=== PATIENT | female | born 2000 | race African-American/Black ===

== ENCOUNTER 2020-07-12 02:23 | Day surgery (SDC) | payer OTHER ==
[2020-07-12 02:40] VITALS: BMI 27.4
[2020-07-12] MEDS ORDERED: hydrALAZINE 20 MG/ML VIAL SLOW IVP PRN (02:56)
[2020-07-12] MEDS ORDERED: Ondansetron ODT 4 MG TAB SL SCH (03:30)
[2020-07-12 04:23] LABS: Bilirubin Neg (Negative); Blood, Urine Negative (Negative); Clarity Cloudy (Clear); Glucose, Urine (Dipstick) Normal (Negative); Ketone, Urine Negative (Negative); Leukocyte 500 (Negative); Nitrite Negative (Negative); Protein, Urine (Dipstick) Negative (Neg-Trace); Urobilinogen Normal mg/dL (Less than 2); pH, Urine 6.5 (5.0-9.0)
[2020-07-12 04:31] LABS: RBC/HPF 0-3 HPF (0-3)
[2020-07-12 04:32] LABS: Bacteria/HPF 1+ HPF (None Seen)
[2020-07-14 21:55] LABS: Chlamydia by PCR Not Detected (NotDetected); GC by PCR Not Detected (NotDetected)
== END 2020-07-12 06:10 | disposition home or self-care (01) ==
LOC: CSHLD/OP 02:23
PROVIDERS: ATTEND Family Medicine
DX: O99.283 Endocrine, nutritional and metabolic diseases complicating pregnancy, third trimester (principal); E86.0 Dehydration; O99.891 Other specified diseases and conditions complicating pregnancy; R10.9 Unspecified abdominal pain; R39.11 Hesitancy of micturition; O98.812 Other maternal infectious and parasitic diseases complicating pregnancy, second trimester; A74.9 Chlamydial infection, unspecified; Z3A.20 20 weeks gestation of pregnancy
CPT/HCPCS: 81001; 87086; 87491; 87591; 99282; Q0162

== ENCOUNTER 2020-07-20 00:47 | Day surgery (SDC) | payer OTHER ==
[2020-07-20 01:30] VITALS: BMI 25.7
[2020-07-20] MEDS ORDERED: hydrALAZINE 20 MG/ML VIAL SLOW IVP PRN (02:14)
[2020-07-20 03:07] LABS: #Eosinphils 0.2 10x3/uL (0.0-0.5); #Monocytes 0.8 10x3/uL (0.0-1.1); #Neutrophils 5.7 10x3/uL (1.5-8.4); %Basophils 0.1 % (0.0-2.0); %Lymphocytes 28.7 % (18.0-47.0); %Monocytes 8.4 % (0.0-10.0); %Neutrophils 60.5 % (40.0-75.0); Hemoglobin 9.7 g/dL (12.0-15.5); Mean Corpuscular HGB CONC 30.6 g/dL (32.0-36.0); Mean Corpuscular Hemoglobin 27.2 pg (27.0-33.0); Mean Platelet Volume 10.1 fl (7.4-10.4); Platelet Count 255 10x3/uL (150-450); RBC Distribution Width 14.1 % (11.5-14.5); Red Blood Cell (RBC) Count 3.56 10x6/uL (3.90-5.03); White Blood Cell (WBC) Count 9.5 10x3/uL (3.5-10.5)
[2020-07-21 23:06] LABS: Chlamydia by PCR Not Detected (NotDetected); GC by PCR Not Detected (NotDetected)
== END 2020-07-20 05:53 | disposition home or self-care (01) ==
LOC: CSHLD/OP 00:47
PROVIDERS: ATTEND Family Medicine
DX: O46.92 Antepartum hemorrhage, unspecified, second trimester (principal); O32.1XX0 Maternal care for breech presentation, not applicable or unspecified; O23.592 Infection of other part of genital tract in pregnancy, second trimester; B96.89 Other specified bacterial agents as the cause of diseases classified elsewhere; O99.012 Anemia complicating pregnancy, second trimester; D64.9 Anemia, unspecified; Z3A.21 21 weeks gestation of pregnancy
CPT/HCPCS: 36415; 76805; 85025; 87480; 87491; 87510; 87591; 87660; 99284

== ENCOUNTER 2022-05-23 11:59 | Emergency (ER) | payer OTHER ==
[2022-05-23] MEDS ORDERED: cefTRIAXone\\ROCEPHIN 250 MG VIAL ONE (13:01)
[2022-05-23] MEDS ORDERED: Azithromycin 250 MG TAB ONE (13:01)
[2022-05-23] MEDS ORDERED: Sterile Water 10 ML ONE (13:02)
[2022-05-23 13:28] LABS: Bilirubin Neg (Negative); Blood, Urine 25 (Negative); Clarity Cloudy (Clear); Glucose, Urine (Dipstick) Normal (Negative); Ketone, Urine Negative (Negative); Leukocyte 500 (Negative); Nitrite Negative (Negative); Protein, Urine (Dipstick) 30 mg/dl (Neg-Trace); Specific Gravity, Urine 1.025 (1.005-1.030)
[2022-05-23 13:56] LABS: RBC/HPF 0-3 HPF (0-3)
[2022-05-23 13:57] LABS: Bacteria/HPF 1+ HPF (None Seen)
[2022-05-24 11:45] LABS: Chlam.trachomatis by PCR,Urine Not Detected (NotDetected); GC N.gonorrhoeae PCR,UrineVOID Not Detected (NotDetected)
== END 2022-05-23 13:27 | disposition home or self-care (01) ==
LOC: CSHERS 11:59
DX: Z20.2 Contact with and (suspected) exposure to infections with a predominantly sexual mode of transmission (principal); I10 Essential (primary) hypertension
CPT/HCPCS: 81003; 81015; 87491; 87591; 96372; 99283; J0696

== ENCOUNTER 2024-03-16 17:39 | Emergency (ER) | payer OTHER, SELFPAY ==
[2024-03-16] MEDS ORDERED: Ondansetron ODT 4 MG TAB ONE (17:58)
== END 2024-03-16 18:08 | disposition home or self-care (01) ==
LOC: CSHERS 17:39
DX: J06.9 Acute upper respiratory infection, unspecified (principal); R11.0 Nausea; I10 Essential (primary) hypertension
CPT/HCPCS: 99283; Q0162

== ENCOUNTER 2024-04-04 18:06 | Emergency (ER) | payer SELFPAY ==
[2024-04-04 20:01] LABS: Bilirubin Neg (Negative); Blood, Urine 25 (Negative); Clarity Cloudy (Clear); Glucose, Urine (Dipstick) Normal (Negative); Ketone, Urine Negative (Negative); Leukocyte 100 (Negative); Nitrite Negative (Negative); Protein, Urine (Dipstick) 30 mg/dl (Neg-Trace); Specific Gravity, Urine 1.005 (1.005-1.030); Urobilinogen Normal mg/dL (Less than 2)
[2024-04-04 20:02] LABS: Pregnancy Test - Urine (BHCG) Negative (Negative); Pregu Control Background? CLEAR/WHITE (CLR/WHITE); Pregu Control Bar Appear? YES (CONTROL BAR); Specific Gravity 1.005 (1.002-1.036)
[2024-04-04 20:13] LABS: Bacteria/HPF 3+ HPF (None Seen); CAUTI Indications for Culture Pelvic or flank pain; RBC/HPF 0-3 HPF (0-3); Squamous Epithelial 0-3 HPF (0-3); Urine Culture Reflex Yes Yes; WBC/HPF 21-50 HPF (0-3)
[2024-04-04] MEDS ORDERED: cefTRIAXone (ROCEPHIN) 1 GM VIAL ONE (20:31)
[2024-04-04] MEDS ORDERED: Sterile Water 10 ML ONE (20:31)
[2024-04-04] MEDS ORDERED: Acetaminophen 500 MG TAB ONE (20:31)
[2024-04-05 01:49] LABS: Chlamydia by PCR, Vaginal Swab Not Detected (NotDetected); GC by PCR, Vaginal Swab Not Detected (NotDetected)
== END 2024-04-04 21:18 | disposition home or self-care (01) ==
LOC: CSHERS 18:06
DX: N10 Acute pyelonephritis (principal); N39.0 Urinary tract infection, site not specified; N89.8 Other specified noninflammatory disorders of vagina; I10 Essential (primary) hypertension
CPT/HCPCS: 81001; 81025; 87077; 87086; 87480; 87491; 87510; 87591; 87660; 96372; 99284; J0696